=== PATIENT | female | born 1975 | race Caucasian/White ===

== ENCOUNTER → 2020-10-16 11:42 | Outpatient (CLI) | payer OTHER, SELFPAY ==
--- NOTE | 2020-10-16 | DI.MRI.S_ITS ---
PROCEDURE: MR SHOULDER RT WO CON INDICATIONS: Pain in RIGHT shoulder TECHNIQUE: Noncontrast oblique coronal T2 fast spin echo with fat saturation, oblique sagittal T1 spin echo and T2 fast spin echo with fat saturation, axial T1 spin echo and T2 fast spin echo with fat saturation through the shoulder. COMPARISON: None. FINDINGS: Image quality: Excellent. Rotator cuff: Supraspinatus tendinopathy low-grade bursal articular surface fraying. No high-grade or full-thickness tear. Infraspinatus teres minor and subscapularis tendons appear intact. Atrophy of the rotator cuff musculature. Bones and bursae: No bone marrow contusions or fractures. Mild acromioclavicular joint degeneration. Acromion demonstrates conventional anatomy, without an os acromiale. Mild subacromial-subdeltoid bursitis. Capsule and soft tissues: Labrum: Posterosuperior labral tear seen image 12/6. There is adjacent associated partial-thickness chondral loss. Posterior subluxed appearance of the humeral head relative to the glenoid raising the possibility of microinstability. Long head of the biceps tendon intact. The rotator interval appears normal, without fibrosis. Coracohumeral ligament intact. IMPRESSION: Supraspinatus tendinopathy and adjacent mild subacromial-subdeltoid bursitis. Posterosuperior labral tear and associated partial thickness chondral loss. Posterior subluxed appearance of the humeral head relative to the glenoid raising the possibility of microinstability. Dictated by: Connor Anderson M.D. on 10/18/2020 at 9:26 Approved by: Connor Anderson M.D. on 10/18/2020 at 9:31
== END ==
PROVIDERS: PCP Family Medicine; Referring Provider Family Medicine; Visit Provider Family Medicine
DX: M25.511 Pain in right shoulder (principal); S43.491A Other sprain of right shoulder joint, initial encounter; M75.51 Bursitis of right shoulder; M19.011 Primary osteoarthritis, right shoulder
CPT/HCPCS: 73221

== ENCOUNTER → 2021-07-28 08:13 | Outpatient (CLI) | payer OTHER, SELFPAY ==
--- NOTE | 2021-07-28 | DI.RAD.S_ITS ---
PROCEDURE: FL SHOULDER INJECTION MR/CT RT INDICATIONS: TEAR OF RIGHT GLENOID LABRUM COMPARISON: [facility], MR, MR SHOULDER RT W CON, 07/28/2021, 8:43. TECHNIQUE: The indications, alternatives, benefits, risks, and complications of the procedure were explained to the patient. Written informed consent was obtained and placed in the chart. The shoulder was examined fluoroscopically and a site for needle placement chosen for entry into the glenohumeral joint from an anterior approach. The skin was prepped and draped in a sterile fashion, and 1% lidocaine infiltrated from skin down to joint capsule. A spinal needle was inserted into the glenohumeral joint, and a small amount of iodinated contrast media injected to confirm intra-articular placement of the needle tip. This was followed by approximately 12 mL dilute solution of a gadolinium containing MR contrast agent. The needle was removed and a dressing was applied. The patient was given postprocedural instructions and sent to the MR suite for MR imaging. FINDINGS: A single fluoroscopic spot image demonstrates intra-articular location of injected iodinated contrast. IMPRESSION: Successful fluoroscopically guided administration of dilute Gadolinium solution into the shoulder joint for MR arthrogram. Dictated by: Michael Vega M.D. on 07/28/2021 at 12:25 Approved by: Michael Vega M.D. on 07/28/2021 at 12:25
--- NOTE | 2021-07-28 | DI.MRI.S_ITS ---
PROCEDURE: MR SHOULDER RT W CON INDICATIONS: TEAR OF RIGHT GLENOID LABRUM TECHNIQUE: After the administration of 12 mL of dilute intra-articular Gadolinium contrast, oblique coronal T1 and T2 spin echo with fat saturation, oblique sagittal T1 spin echo with and without fat saturation, oblique sagittal T2 fast spin echo with fat saturation, axial T1 spin echo with fat saturation through the shoulder. COMPARISON: [facility], MR, MR SHOULDER RT WO CON, 10/16/2020, 11:48. [facility], RF, FL SHOULDER INJECTION MR/CT RT, 07/28/2021, 8:29. FINDINGS: Image quality: Excellent. Rotator cuff: There is mild to moderate supraspinatus tendinosis with low-grade bursal surface fraying but no significant tear. The infraspinatus, teres minor, and subscapularis tendons are intact. There is no significant rotator cuff muscle atrophy. Bones and bursae: No acute trabecular bone injury. Chronic traction cystic changes are seen at the posterosuperior humeral head near the infraspinatus tendon insertion. There is minimal posterior subluxation of the humeral head relative to glenoid, unchanged. Mild acromioclavicular osteoarthrosis is present. Trace subacromial/subdeltoid bursal thickening. Capsule and soft tissues: There is nondisplaced partial tearing of the posterosuperior and superior labrum. There appears to be partial-thickness tearing at the undersurface of the glenoid labrum without a full-thickness tear or continuation within the biceps long head tendon (image 11 of series 7). There is partial thickness cartilage loss of the adjacent posterosuperior glenoid. The biceps long head tendon is intact. The glenohumeral ligaments are intact. IMPRESSION: 1. Partial nondisplaced tear of the posterosuperior and superior labrum is better demonstrated when compared to the exam from 10/16/2020, but likely not significantly changed in extent. There is probable partial-thickness tearing of the biceps long head tendon anchor. Adjacent partial-thickness cartilage loss is seen at the posterosuperior glenoid. 2. Mild to moderate supraspinatus tendinosis. Dictated by: Guerrero Nuñez M.D. on 07/28/2021 at 9:22 Approved by: Guerrero Nuñez M.D. on 07/28/2021 at 9:38
== END ==
PROVIDERS: PCP Family Medicine; Referring Provider Orthopaedic Surgery; Visit Provider Orthopaedic Surgery
DX: S43.431A Superior glenoid labrum lesion of right shoulder, initial encounter (principal)
CPT/HCPCS: 23350; 73222; 77002